=== PATIENT | female | born 1955 | race Hispanic/Latino ===

== ENCOUNTER → 2023-10-06 | Outpatient (REF) | payer MEDICARE | LOC: US 08:40 | PROVIDERS: ATTEND Physician Assistant Medical | DX: E11.9 Type 2 diabetes mellitus without complications (principal); Z78.9 Other specified health status; R19.7 Diarrhea, unspecified; N28.1 Cyst of kidney, acquired; K76.89 Other specified diseases of liver; Z68.32 Body mass index [BMI] 32.0-32.9, adult | CPT/HCPCS: 76700 ==

== ENCOUNTER 2024-03-25 19:17 | Emergency (ER) | payer MEDICARE ==
[~2024-03-25] VITALS: Ht 162.6 cm; Wt 82.6 kg
[2024-03-25 19:59] LABS: BASOPHILS # (AUTO) 0.1 (0.0-0.1); BASOPHILS % 0.9 % (0.0-1.0); EOSINOPHILS # (AUTO) 0.2 (0.0-0.4); EOSINOPHILS % 4.2 % (0.0-6.0); HEMATOCRIT 41.1 % (34.2-44.1); HEMOGLOBIN 13.2 g/dL (12.0-16.0); LYMPHOCYTES # (AUTO) 1.4 (1.0-3.2); LYMPHOCYTES % 24.9 % (18.0-39.1); MEAN CORPUSCULAR HEMOGLOBIN 30.3 pg (28-32); MEAN CORPUSCULAR HGB CONC 32.1 g/dL (31-35); MEAN CORPUSCULAR VOLUME 94.3 fL (81-99); MONOCYTES # (AUTO) 0.4 (0.2-0.8); MONOCYTES % 7.3 % (4.4-11.3); NEUTROPHILS # (AUTO) 3.4 (2.1-6.9); NEUTROPHILS % 62.3 % (38.7-80.0); PLATELET COUNT 282 x10e3/uL (140-360); RED BLOOD COUNT 4.36 x10e6/uL (3.6-5.1); RED CELL DISTRIBUTION WIDTH 13.2 % (11.7-14.4); WHITE BLOOD COUNT 5.46 x10e3/uL (4.8-10.8)
[2024-03-25 20:01] LABS: BILIRUBIN,URINE NEGATIVE (NEGATIVE); CLARITY,URINE CLEAR (CLEAR); COLOR,URINE YELLOW (YELLOW); GLUCOSE, URINE NEGATIVE (NEGATIVE); KETONES,URINE NEGATIVE (NEGATIVE); LEUKOCYTE ESTERASE ,URINE NEGATIVE (NEGATIVE); NITRITE,URINE NEGATIVE (NEGATIVE); PH,URINE 5.5 (5 - 7); PROTEIN,URINE DIPSTICK NEGATIVE (NEGATIVE); URINE UROBILINOGEN 0.2 mg/dL (0.2 - 1)
[2024-03-25 20:14] LABS: BACTERIA,URINE FEW /HPF
[2024-03-25 20:15] LABS: ALBUMIN 4.1 g/dL (3.5-5.0); ALBUMIN/GLOBULIN RATIO 1.4 (0.8-2.0); ANION GAP 13.8 mmol/L (8-16); BILIRUBIN,TOTAL 0.2 mg/dL (0.2-1.2); CALCIUM 8.8 mg/dL (8.4-10.2); CREATININE, SERUM 0.94 mg/dL (0.57-1.11); POTASSIUM 3.8 mmol/L (3.5-5.1); TOTAL PROTEIN 7.1 g/dL (6.5-8.1)
[2024-03-25 20:23] LABS: INFLUENZAE A&B ANTIGEN (RAPID) NEGATIVE (NEGATIVE); RESPIRATORY SYNC. VIRUS NEGATIVE (NEGATIVE)
[2024-03-25] MEDS ORDERED: IOPAMIDOL 370 MG/ML 100 ML INFUS..BTL INJ ONE (20:30)
[2024-03-25] MEDS: ASPIRIN 325 MG TAB PO ONE (23:47)
[2024-03-26 01:15] VITALS: PULSE 58
[2024-03-26 01:35] VITALS: RESP 20; TEMP 98.6; O2SAT 97
== END 2024-03-26 01:38 | disposition other institution (70) ==
LOC: ER 19:50
DX: R47.81 Slurred speech (principal); G45.9 Transient cerebral ischemic attack, unspecified; I10 Essential (primary) hypertension; E11.9 Type 2 diabetes mellitus without complications; E78.5 Hyperlipidemia, unspecified; M32.9 Systemic lupus erythematosus, unspecified; E03.9 Hypothyroidism, unspecified; Z11.52 Encounter for screening for COVID-19; R94.31 Abnormal electrocardiogram [ECG] [EKG]
CPT/HCPCS: 36415; 70496; 70498; 80053; 81001; 82948; 84484; 85025; 87400; 87420; 93005; 99284; Q9967; U0002

== ENCOUNTER 2025-03-15 15:24 | Inpatient (IN) | payer MEDICARE ==
[~2025-03-15] VITALS: Ht 162.6 cm; Wt 82.6 kg
[2025-03-15 16:59] LABS: BASOPHILS % 0.9 % (0.0-1.0); EOSINOPHILS % 5.2 % (0.0-6.0); LYMPHOCYTES % 30.6 % (18.0-39.1); MONOCYTES % 9.4 % (4.4-11.3); NEUTROPHILS % 53.7 % (38.7-80.0); RED CELL DISTRIBUTION WIDTH 12.7 % (11.7-14.4)
[2025-03-15 17:12] LABS: INR 0.83
[2025-03-15 17:21] LABS: EST GLOMERULAR FILTRATION RATE 69.0 ML/MIN (>=60)
[2025-03-15] MEDS: SODIUM CHLORIDE 0.9% 1000ML 1,000 ML IV STA (17:43)
[2025-03-15] MEDS ORDERED: IOPAMIDOL 370 MG/ML 100 ML INFUS..BTL INJ ONE (17:44)
[2025-03-15 18:16] LABS: EPITHELIAL CELLS,URINE FEW /LPF; LEUKOCYTE ESTERASE ,URINE TRACE (NEGATIVE); PROTEIN,URINE DIPSTICK NEGATIVE (NEGATIVE); URINE UROBILINOGEN 0.2 mg/dL (0.2 - 1); WBC,URINE (MAN) 0-5 /HPF (0-5)
[2025-03-15 18:53] VITALS: TEMP 97.6
[2025-03-15] MEDS ORDERED: Morphine 2mg Syringe 2 MG/ML SYR IV PRN (20:30)
[2025-03-15] MEDS ORDERED: ONDANSETRON HCL INJ 2MG/ML 2ML 2 MG/ML VIAL IV PRN (20:30)
[2025-03-15 20:55] VITALS: PULSE 57; RESP 18; RESP 20; O2SAT 96
[2025-03-15] MEDS: SODIUM CHLORIDE 0.9% 1000ML 1,000 ML IV SCH (21:01)
[2025-03-15 22:00] VITALS: BP_SYST 146; BP_SYST 149; BP_DIAS 63; BP_DIAS 75; PULSE 57; PULSE 69; RESP 17; RESP 18; TEMP 97.5; TEMP 97.7; O2SAT 100
[2025-03-15] MEDS ORDERED: HYDRALAZINE HCL 25 MG TAB PO PRN ×2 (23:30→23:45)
[2025-03-15] MEDS ORDERED: ACETAMINOPHEN 325 MG TAB PO PRN (23:30)
[2025-03-16] VITALS (9 sets, daily range): BP systolic 123–149; BP diastolic 70–78; PULSE 54–64; RESP 18–20; TEMP 97.5–98; O2SAT 97–99
[2025-03-16] MEDS: ASPIRIN 81 MG ENTERIC COATED PO STA (00:32)
[2025-03-16] MEDS ORDERED: GABAPENTIN300 MG PO (04:03)
[2025-03-16] MEDS ORDERED: ASPIRIN EC81 MG PO (04:03)
[2025-03-16] MEDS ORDERED: ADVAIR HFA 115-12 GM (04:03)
[2025-03-16] MEDS ORDERED: METFORMIN HCL1000 MG PO (04:03)
[2025-03-16] MEDS ORDERED: HYDROXYCHLOROQ200 MG PO (04:03)
[2025-03-16] MEDS ORDERED: LEVOTHYROXINE50 MCG PO (04:03)
[2025-03-16] MEDS ORDERED: PROAIR DIGIHAL90 MCG INH (04:03)
[2025-03-16] MEDS ORDERED: LOSARTAN-HCTZ1 EACH PO (04:03)
[2025-03-16 05:51] LABS: BASOPHILS % 0.8 % (0.0-1.0); EOSINOPHILS % 8.0 % (0.0-6.0); LYMPHOCYTES % 29.0 % (18.0-39.1); MONOCYTES % 7.6 % (4.4-11.3); NEUTROPHILS % 54.0 % (38.7-80.0); RED CELL DISTRIBUTION WIDTH 12.9 % (11.7-14.4)
[2025-03-16 06:18] LABS: EST GLOMERULAR FILTRATION RATE 74.0 ML/MIN (>=60)
[2025-03-16] MEDS: ASPIRIN 81 MG ENTERIC COATED PO SCH (09:46)
[2025-03-16] MEDS ORDERED: DEXTROSE 50% SYRINGE 50 ML IV PRN (10:45)
[2025-03-16] MEDS ORDERED: ALBUTEROL/IPRATROPIUM 3 ML NEB NEB PRN (10:45)
[2025-03-16] MEDS: INSULIN LISPRO 100 UNIT/1 ML 3ML VIAL SQ SCH (11:12)
[2025-03-16] MEDS: MECLIZINE HCL 12.5 MG TAB PO SCH (11:33)
[2025-03-16] MEDS: FLUTICASONE IH SCH (12:00)
[2025-03-16] MEDS: SALMETEROL IH SCH (12:00)
[2025-03-16] MEDS: GABAPENTIN 100 MG CAP PO SCH (14:56)
[2025-03-16] MEDS: HYDROXYCHLOROQUINE SULFATE 200 MG TAB PO SCH (16:24)
[2025-03-17 03:12] VITALS: BP 134/61; PULSE 58; RESP 18; TEMP 97.9; O2SAT 98
[2025-03-17] MEDS: LEVOTHYROXINE SODIUM 50 MCG TAB PO SCH (05:28)
[2025-03-17 07:26] VITALS: PULSE 61; RESP 18; O2SAT 95
[2025-03-17 07:26] LABS: PHOSPHORUS 3.9 MG/DL (2.3-4.7)
[2025-03-17 07:44] VITALS: BP 127/64; PULSE 103; RESP 18; TEMP 97.9; O2SAT 100
[2025-03-17 08:00] VITALS: BP 127/64; PULSE 103; RESP 18; TEMP 97.9; O2SAT 100
[2025-03-17 11:09] VITALS: BP 142/74; PULSE 57; RESP 18; TEMP 97.9; O2SAT 99
[2025-03-17 15:10] VITALS: BP 149/80; PULSE 69; RESP 18; TEMP 98.4; O2SAT 99
[2025-03-17] MEDS ORDERED: MECLIZINE HCL12.5 MG PO (16:15)
== END 2025-03-17 18:19 | disposition home or self-care (01) | DRG 149 ==
LOC: ER 15:58 → ERHOLD 20:18 → MED/SURG2 21:53
PROVIDERS: ADMIT Internal Medicine; ATTEND Internal Medicine
DX: H81.10 Benign paroxysmal vertigo, unspecified ear (principal); G45.9 Transient cerebral ischemic attack, unspecified; E11.42 Type 2 diabetes mellitus with diabetic polyneuropathy; I10 Essential (primary) hypertension; E78.5 Hyperlipidemia, unspecified; I25.10 Atherosclerotic heart disease of native coronary artery without angina pectoris; E03.9 Hypothyroidism, unspecified; R27.0 Ataxia, unspecified; Z79.82 Long term (current) use of aspirin; Z79.890 Hormone replacement therapy; Z79.84 Long term (current) use of oral hypoglycemic drugs; Z86.73 Personal history of transient ischemic attack (TIA), and cerebral infarction without residual deficits; Z90.49 Acquired absence of other specified parts of digestive tract; Z88.1 Allergy status to other antibiotic agents
CPT/HCPCS: 36415; 70450; 70496; 70498; 70551; 71045; 80053; 81001; 82550; 82607; 82746; 82948; 83735; 84100; 84484; 85025; 85610; 85730; 93005; 93306; 94799; 99284; J7030; Q9967